=== PATIENT | female | born 1990 | race Two or more races ===

== ENCOUNTER 2025-01-06 21:07 | Emergency (ER) | payer MEDICAID, SELFPAY ==
[2025-01-06 21:24] VITALS: BP 129/77; PULSE 122; RESP 20; TEMP 38.3; O2SAT 98
--- NOTE | 2025-01-06 21:43 | EDNOTE_ITS ---
Upper Respiratory Inf. RME/HPI General Chief Complaint: Shortness of Breath/Dyspnea Stated Complaint: COUGH, SOB, CHILLS, CHEST PAIN Time Seen by Provider: 01/06/25 21:41 Arrival date/time: 01/06/25 21:07 34F with history of asthma presents to ED with 2 days of cough, SOB, and some CP with cough. Son has similar symptoms. Limitations: no limitations Related Data Previous Rx's ?Medication ?Instructions ?Recorded naproxen 500 mg tablet (Naprosyn) 500 mg PO BID PRN pa in #30 tabs 06/02/22 naproxen 500 mg tablet 500 mg PO BID PRN pain #30 t abs 06/01/24 Allergies Allergy/AdvReac Type Severity Reaction Status Date / Time No Known Allergies Allergy Verified 04/30/22 13:08 Review of Systems Review of Systems Systems Reviewed: All systems reviewed, normal except as documented Constitutional Constitutional: Reports system reviewed and no additional complaints, except as documented, Reports as per HPI, Reports chills, Reports fever(s) and Denies headache(s) ENT Ears, Nose, Mouth, and Throat: Denies disequilibrium and Denies headache(s) Cardiovascular Cardiovascular: Reports system reviewed and no additional complaints, except as documented, Reports as per HPI, Reports chest pain and Reports dyspnea Respiratory Respiratory: Reports system reviewed and no additional complaints, except as documented, Reports as per HPI, Reports cough and Reports dyspnea Gastrointestinal Gastrointestinal: Reports system reviewed and no additional complaints, except as documented, Denies abdominal pain, Denies nausea and Denies vomiting Neurologic Neurologic: Reports system reviewed and no additional complaints, except as documented, Denies confusion, Denies disequilibrium and Denies headache(s) Psychiatric Psychiatric: Denies confusion Past Medical History Past Medical History CARDIAC: Negative Cardiac Disorders or Congestive Heart Failure RESPIRATORY: Negative Chronic Obstructive Pulmonary Disease (COPD) or Asthma GENITOURINARY: Negative Renal Disease REPRODUCTIVE: Positive Previous Pregnancies ENDOCRINE: Negative Diabetes Mellitus Type 1 or Diabetes Mellitus Type 2 HEMATOLOGIC: Negative Sickle Cell Disease Social History SMOKING STATUS: Never smoker SUBSTANCE USE: does not use ED Exam General Limitations: Present no limitations General appearance: Present alert and in no apparent distress Head Head exam: Present atraumatic Eye Eye exam: Present normal appearance, PERRL and EOMI ENT ENT exam: Present normal exam, normal oropharynx and mucous membranes moist Neck Neck exam: Present normal inspection, full ROM and trachea midline Chest Chest inspection: Present normal inspection and symmetric chest wall rise Respiratory Respiratory exam: Present normal lung sounds bilaterally and prolonged expiratory phase Cardiovascular Cardiovascular exam: Present regular rate, normal rhythm and normal heart sounds Abdominal Exam Abdominal exam: Present soft and normal bowel sounds Extremities Exam Extremities exam: Present normal inspection and full ROM Back Exam Back exam: Present normal inspection and full ROM Neurological Exam Neurological exam: Present alert, oriented X3 and CN II-XII intact Psychiatric Psychiatric exam: Present normal affect and normal mood Skin Skin exam: Present warm, dry, intact and normal color Course Quality Measures none Orders Category Date Time Status Bedside COVID-19 Antigen Test NOW Care 01/06/25 21:41 Completed Bedside Influenza A&B Antigen Test NOW Care 01/06/25 21:20 Completed RSV [Respiratory Syncytial Virus Ag] Stat Lab 01/06/25 21:46 Completed Acetaminophen Tab [Tylenol ES Tab] Med 01/06/25 21:42 Discontinued 1,000 mg PO X1 ONE Dexamethasone Inj [Decadron Inj] Med 01/06/25 21:42 Discontinued 10 mg PO X1 ONE Naproxen [Naprosyn] Med 01/06/25 21:42 Discontinued 500 mg PO X1 ONE Vital Signs Vital signs: Vital Signs Temperature 101.0 F H 01/06/25 21:24 Pulse Rate 122 H 01/06/25 21:24 Respiratory Rate 20 01/06/25 21:24 Blood Pressure 129/77 01/06/25 21:24 Pulse Oximetry (%) 98 01/06/25 21:24 Oxygen Delivery Method Room Air 01/06/25 21:24 O2 at 98% on RA and WNLs Upper Respiratory Infection MDM Narrative MDM Narrative:: 34F with history of asthma presents to ED with 2 days of cough, SOB, and some CP with cough. Son has similar symptoms. Physical exam reveals clear ENT and lungs. Prolonged expiration. Patient is febrile, but does not appear toxic. Swabs neg. Patient eloped prior to DC. Patient data External records reviewed:: [facility] previous records Clinical information provided by:: patient Social determinants that could affect healthcare access:: none Patient has the following chronic illnesses:: asthma How is presenting disease/condition affected by chronic disease/condition?: exacerbated by Evaluation data The following diagnostics were reviewed and interpreted by me:: lab results Lab and/or radiology exams considered but not ordered:: ordered Interpretation Summary: above Medications / Prescriptions Medications or Prescriptions considered but not ordered:: ordered Medication administrations:: Medication Administration History Discontinued Medications Acetaminophen (Acetaminophen 500 Mg Tablet) 1,000 mg PO X1 ONE Stop: 01/06/25 21:43 Last Admin: 01/06/25 21:52 Dose: 1,000 mg Documented By: OA Dexamethasone Sodium Phosphate (Dexamethasone Sod Phos Inj 10 Mg/Ml Vial) 10 mg PO X1 ONE Stop: 01/06/25 21:43 Last Admin: 01/06/25 21:51 Dose: 10 mg Documented By: OA Naproxen (Naproxen 250 Mg Tablet) 500 mg PO X1 ONE Stop: 01/06/25 21:43 Last Admin: 01/06/25 21:51 Dose: 500 mg Documented By: OA above Consultations Consultation(s) initiated? (list below): No Diagnosis Upper Respiratory Differential Diagnosis: upper respiratory infection, croup, otitis media, sinusitis, viral infection, bronchitis, influenza, pharyngitis and other (CAP) Most likely diagnosis given after review of the tests above:: URI Admission Indicated Admission indicated?: not indicated Admission Request Was there a request for admission?: No Disposition Plan Disposition Plan: other (specify) (eloped) Discharge Plan Plan Patient Disposition: Elopement Prescriptions/Referrals Prescriptions/Med Rec: No Action naproxen [Naprosyn] 500 mg tablet 500 mg PO BID PRN (Reason: pain) Qty: 30 0RF naproxen 500 mg tablet 500 mg PO BID PRN (Reason: pain) Qty: 30 0RF Referrals: Stephan Ritter MD ([place]) [Primary Care Provider] - In 1 week Problem List Clinical Impression: URI (upper respiratory infection) Patient/Caregiver Discharge Instructions Print Language: Turkmen PA/CINDER CRANE OPERATOR Supervising Physician PA/CINDER CRANE OPERATOR Supervising Physician: Dr. Ellis
[2025-01-06] MEDS: DEXAMETHASONE SOD PHOS INJ 10 MG/ML VIAL PO (21:51)
[2025-01-06] MEDS: NAPROXEN 250 MG TABLET 500 MG PO (21:51)
[2025-01-06 21:52] VITALS: TEMP 38.3
[2025-01-06] MEDS: ACETAMINOPHEN 500 MG TABLET 1000 MG PO (21:52)
[2025-01-06 22:31] VITALS: BP 128/74; PULSE 128; RESP 19; TEMP 38.3; O2SAT 99
[2025-01-06 22:51] LABS: Respiratory Syncytial Virus Ag Negative (Negative)
--- NOTE | 2025-01-06 23:29 | PC.NURSE ---
Pt did not answer when name was called in the lobby. Pt was looked for outside, was not found and did not answer when name was called.
--- NOTE | 2025-01-06 23:42 | PC.NURSE ---
NA FROM [facility]
--- NOTE | 2025-01-06 23:52 | PC.NURSE ---
NA FROM [facility] LAINEZ
== END 2025-01-06 23:53 | disposition left against medical advice (07) ==
LOC: SERX 22:04
PROVIDERS: Physician Assistant; Emergency Provider Emergency Medicine; PCP Family Medicine
DX: J06.9 Acute upper respiratory infection, unspecified (principal)
CPT/HCPCS: 87400; 87634; 87811; 99281; J1100; A9270

== ENCOUNTER 2025-08-14 02:27 | Emergency (ER) | payer MEDICAID, SELFPAY ==
[2025-08-14 02:40] VITALS: BP 166/82; PULSE 105; RESP 19; TEMP 36.9; O2SAT 99; BMI 42.3
--- NOTE | 2025-08-14 02:47 | EDNOTE_ITS ---
ED Ear RME/HPI General Chief complaint: Ear Stated complaint: earache Time Seen by Provider: 08/14/25 02:29 Arrival date/time: 08/14/25 02:27 This is a case of 20-year-old female with no medical history came into the emergency room due to fever cough nasal congestion for 1 day patient took COVID test and it was positive patient denies any shortness of breath nor chest pain Limitations: no limitations Related Data Previous Rx's ?Medication ?Instructions ?Recorded naproxen 500 mg tablet (Naprosyn) 500 mg PO BID PRN pa in #30 tabs 06/02/22 naproxen 500 mg tablet 500 mg PO BID PRN pain #30 t abs 06/01/24 amoxicillin 875 mg-potassium 1 tab PO BID #20 tabs clavulanate 125 mg tablet hydrocodone 5 mg-acetaminophen 325 1 tab PO Q6H PRN pa in #12 tabs 08/14/25 mg tablet ofloxacin 0.3 % ear drops 5 drp otic (ear) BID 7 days #10 mL 08/14/25 Allergies Allergy/AdvReac Type Severity Reaction Status Date / Time No Known Allergies Allergy Verified 04/30/22 13:08 Review of Systems Review of Systems Systems Reviewed: All systems reviewed, normal except as documented Constitutional Constitutional: Reports system reviewed and no additional complaints, except as documented and Reports as per HPI ENT Ears, Nose, Mouth, and Throat: Reports system reviewed and no additional complaints, except as documented and Reports as per HPI Cardiovascular Cardiovascular: Reports system reviewed and no additional complaints, except as documented and Reports as per HPI Respiratory Respiratory: Reports system reviewed and no additional complaints, except as documented and Reports as per HPI Neurologic Neurologic: Reports system reviewed and no additional complaints, except as documented and Reports as per HPI Past Medical History Past Medical History CARDIAC: Negative Cardiac Disorders or Congestive Heart Failure RESPIRATORY: Negative Chronic Obstructive Pulmonary Disease (COPD) or Asthma GENITOURINARY: Negative Renal Disease REPRODUCTIVE: Positive Previous Pregnancies ENDOCRINE: Negative Diabetes Mellitus Type 1 or Diabetes Mellitus Type 2 HEMATOLOGIC: Negative Sickle Cell Disease Social History SMOKING STATUS: Never smoker SUBSTANCE USE: does not use ED Exam General Limitations: Present no limitations General appearance: Present alert, in no apparent distress and other (Is awake alert oriented not in distress nontoxic looking well-hydrated well-nourished) Head Head exam: Present atraumatic, normocephalic and normal inspection Eye Eye exam: Present normal appearance, PERRL and EOMI ENT ENT exam: Present normal exam, normal oropharynx, mucous membranes moist and other (Bilateral ear canal erythematous yellowish discharge mild tender no mastoid tenderness bilaterally no earwax no foreign body bilateral tympanic membrane red bulging retracted not) Neck Neck exam: Present normal inspection, full ROM, trachea midline and other; Absent tenderness, meningismus, lymphadenopathy or thyromegaly Chest Chest inspection: Present normal inspection and symmetric chest wall rise; Absent tenderness Respiratory Respiratory exam: Present normal lung sounds bilaterally; Absent respiratory distress, wheezes, stridor, accessory muscle use or prolonged expiratory phase Cardiovascular Cardiovascular exam: Present regular rate, normal rhythm and normal heart sounds; Absent bradycardia, tachycardia, irregular rhythm, systolic murmur or diastolic murmur Abdominal Exam Abdominal exam: Present soft and normal bowel sounds; Absent distention, tenderness, guarding, rebound, rigidity, diminished bowel sounds, hyperactive bowel sounds, hypoactive bowel sounds or organomegaly Extremities Exam Extremities exam: Present normal inspection and full ROM Back Exam Back exam: Present normal inspection and full ROM Neurological Exam Neurological exam: Present alert, oriented X3, CN II-XII intact, normal gait and reflexes normal; Absent motor sensory deficit Psychiatric Psychiatric exam: Present normal affect and normal mood Skin Skin exam: Present warm, dry, intact, normal color and other (Excellent skin turgor) Course Quality Measures none Orders Category Date Time Status Amoxicillin/Pot Clav 875 [Augmentin 875] Med 08/14/25 02:44 Discontinued 1 tab PO X1 ONE HYDROcodone*/APAP 5/325 [[place] 5/325] Med 08/14/25 02:44 Discontinued 1 tab PO X1 ONE Ketorolac Inj [Toradol Inj] Med 08/14/25 02:44 Discontinued 30 mg IM X1 ONE Vital Signs Vital signs: Vital Signs Temperature 98.4 F 08/14/25 02:40 Pulse Rate 105 H 08/14/25 02:40 Respiratory Rate 19 08/14/25 02:40 Blood Pressure 166/82 H 08/14/25 02:40 Pulse Oximetry (%) 99 08/14/25 02:40 Oxygen Delivery Method Room Air 08/14/25 02:40 Oxygen saturation is 99% in room air Ear MDM Narrative MDM Narrative:: This is a case of 20-year-old female with no medical history came into the emergency room due to fever cough nasal congestion for 1 day patient took COVID test and it was positive patient denies any shortness of breath nor chest pain physical examination patient is awake alert oriented not in distress nontoxic looking well-hydrated well-nourished bilateral tympanic membrane noted red bulging retracted not perforated bilateral ear canal with yellowish discharge mild tenderness erythematous no mastoid tenderness bilaterally no earwax no foreign body the rest of the HEENT exam and physical exam were normal and unremarkable based on my physical examination and history patient symptoms suggestive of recurrent otitis media patient was prescribed with Augmentin and ofloxacin and [place] for pain patient is advised to follow-up with PCP to be referred to ENT specialist for recurrent ear infection and for any worsening symptoms and emergent concern return precaution in the ER is advised Patient was discharged with comfortable condition walking with stable gait. Patient verbalized no further complains explained diagnosis and answered patient question. Patient is comfortable with the proposed management plan including the need to follow up with his/her primary care physician and any specialist if applicable Discussed patient for any urgent condition or worsening sx, He/She needed to go to emergency room immediately or call 911. Patient acknowledge the responsibility to follow up as instructed and to monitor her/his symptoms. For any persistence of the symptoms for more than 3-5 days return precaution advised. Discussed the result of the test and was given printed discharge instruction Patient data External records reviewed:: [facility] previous records Clinical information provided by:: patient Social determinants that could affect healthcare access:: none Patient has the following chronic illnesses:: None How is presenting disease/condition affected by chronic disease/condition?: no chronic disease Evaluation data The following diagnostics were reviewed and interpreted by me:: other (specify) (None) Lab and/or radiology exams considered but not ordered:: None Interpretation Summary: None Medications / Prescriptions Medications or Prescriptions considered but not ordered:: Given Medication administrations:: Medication Administration History Discontinued Medications Hydrocodone Bitart/Acetaminophen (Hydrocodone/[place] 5/325 Tablet) 1 tab PO X1 ONE Stop: 08/14/25 02:45 Amoxicillin/Clavulanate Potassium (Amoxicillin/Pot Clav 875 Tablet) 1 tab PO X1 ONE Stop: 08/14/25 02:45 Ketorolac Tromethamine (Ketorolac Inj 60 Mg/2 Ml Vial) 30 mg IM X1 ONE Stop: 08/14/25 02:45 Given Consultations Consultation(s) initiated? (list below): No Diagnosis Ear Differential Diagnosis: otitis externa, otitis media, foreign body in ear, ruptured TM and cerumen impaction Most likely diagnosis given after review of the tests above:: Otitis media Admission Indicated Admission indicated?: not indicated Explain why admission is indicated or not indicated:: Not indicated Admission Request Was there a request for admission?: No Admission Attestation Admission request attestation: Not indicated Disposition Plan Disposition Plan: Discharge Discharge Attestation Discharge Attestation: The patient and all family members were given an opportunity to ask questions and understood the discharge instructions. Discharge instructions specifically effects, indications for sooner follow up or return to the emergency department, and the expected course of current diagnosis. Patient condition: Stable Discharge Plan Plan Patient Disposition: HOME (Self Care) Patient condition on transfer: Stable Prescriptions/Referrals Prescriptions/Med Rec: New hydrocodone-acetaminophen 5-325 mg tablet 1 tab PO Q6H MDD max 4 tabs per day PRN (Reason: pain) Qty: 12 0RF ofloxacin 0.3 % drops 5 drp otic (ear) BID 7 Days Qty: 10 0RF amoxicillin-pot clavulanate 875-125 mg tablet 1 tab PO BID Qty: 20 0RF No Action naproxen [Naprosyn] 500 mg tablet 500 mg PO BID PRN (Reason: pain) Qty: 30 0RF naproxen 500 mg tablet 500 mg PO BID PRN (Reason: pain) Qty: 30 0RF Problem List Clinical Impression: Otitis media of both ears Patient/Caregiver Discharge Instructions Education Materials: ED Otitis Media Antibiotic ... Additional Instructions: Follow-up with your primary care physician in 2 days for reevaluation and to be referred to ENT specialist for recurrent otitis media or ear infection recurrent persistent worsening symptoms return precaution in the ER was advised take your medication as directed finish the course of antibiotic no Q-tips no cotton balls prevent water to enter both ears no swimming is advised Print Language: Romansh Stand Alone Forms: Alicja Award Info., Patient Portal Info Letter PA/BEAD MACHINE OPERATOR Supervising Physician PA/BEAD MACHINE OPERATOR Supervising Physician: Dr. Joe
[2025-08-14] MEDS: KETOROLAC INJ 60 MG/2 ML VIAL 30 MG IM (03:09)
[2025-08-14] MEDS: HYDROcodone/APAP 5/325 TABLET 1 TAB PO (03:09)
[2025-08-14] MEDS: AMOXICILLIN/POT CLAV 875 TABLET 1 TAB PO (03:09)
== END 2025-08-14 03:19 | disposition home or self-care (01) ==
LOC: SERX 02:48
PROVIDERS: Emergency Provider Emergency Medicine; PCP Physician Assistant
DX: H66.93 Otitis media, unspecified, bilateral (principal)
CPT/HCPCS: 96372; 99283; J1885; A9270